=== PATIENT | female | born 1940 | race Caucasian/White ===

== ENCOUNTER 2017-02-19 10:51 | Emergency (ER) | payer MEDICARE, OTHER ==
[~2017-02-19] VITALS: Ht 167.6 cm; Wt 99.8 kg
[~2017-02-19 10:51] MED LIST: CIPR500T24 PO; COLC0.6T69 PO; LISI40TA4 PO; PANT40TA4 PO
[2017-02-19 11:05] VITALS: BP 141/97
[2017-02-19] MEDS ORDERED: TETRACAINE HCL/PF 0.5% UD 2 ML BOTTLE ONE ×2 (11:25)
[2017-02-19] MEDS ORDERED: FLUORESCEIN SODIUM OPHTH 1 EA STRIP ONE (11:25)
[2017-02-19] MEDS ORDERED: [UNRECOGNIZED DRUG - SUPPLY] MC ONE (11:30)
[2017-02-19] MEDS ORDERED: TETRACAINE HCL/PF 0.5% UD 2 ML BOTTLE EACHEYE ONE (11:30)
== END 2017-02-19 11:53 | disposition home or self-care (01) ==
LOC: ER 10:55
DX: H53.8 Other visual disturbances (principal); I10 Essential (primary) hypertension; I49.9 Cardiac arrhythmia, unspecified
CPT/HCPCS: 99283; A4606; Z7610

== ENCOUNTER 2022-03-09 14:59 | Emergency (ER) | payer MEDICARE ==
[~2022-03-09] VITALS: Ht 167.6 cm; Wt 113.4 kg
[~2022-03-09 14:59] MED LIST changes: +COLC0.6T67 PO; -COLC0.6T69 PO; +LISI40TA13 PO; -LISI40TA4 PO; -PANT40TA4 PO; +PANT40TA49 PO
--- NOTE | 2022-03-09 15:21 | NUR ---
BIBS C/O VAGINAL BLEEDING STARTED 6AM TODAY. AMBULATORY, [id number].
--- NOTE | 2022-03-09 15:30 | NUR ---
AT BED SIDE
--- NOTE | 2022-03-09 15:53 | NUR ---
URINE SAMPLE SENT TO LAB
[2022-03-09 16:36] LABS: BASOPHILS % (AUTO) 0.7 % (0.0-2.0); EOSINOPHILS % (AUTO) 3.2 % (0.0-6.0); HEMATOCRIT 42 % (33-45); HEMOGLOBIN 13.5 g/dL (11.5-14.8); LYMPHOCYTES # (AUTO) 1.5 K/uL (0.8-4.8); LYMPHOCYTES % (AUTO) 21.2 % (20.0-44.0); MEAN CORPUSCULAR HGB CONC 32 g/dl (31.0-36.0); MEAN CORPUSCULAR VOLUME 101 fL (82-100); MONOCYTES # (AUTO) 0.8 K/uL (0.1-1.30); MONOCYTES % (AUTO) 10.5 % (2.0-12.0); NEUTROPHILS # (AUTO) 4.6 K/uL (1.8-8.9); NEUTROPHILS % (AUTO) 64.4 % (43.0-81.0); PLATELET COUNT (AUTO) 164 K/uL (150-450); RED BLOOD CELL COUNT(AUTO) 4.13 MIL/uL (4.0-5.2); WHITE BLOOD COUNT (AUTO) 7.2 K/uL (4.3-11.0)
[2022-03-09 16:46] LABS: CALCIUM, SERUM 9.8 mg/dL (8.5-10.1); CREATININE 1.3 mg/dL (0.6-1.3); POTASSIUM 4.4 mmol/L (3.5-5.1)
[2022-03-09 16:52] LABS: ALBUMIN 3.4 g/dL (3.4-5.0); BILIRUBIN,DIRECT 0.2 mg/dL (0.0-0.2); BILIRUBIN,TOTAL 0.6 mg/dL (0.2-1.0); TOTAL PROTEIN, SERUM 7.2 g/dL (6.4-8.2)
[2022-03-09 16:55] LABS: BILIRUBIN,URINE SMALL (NEGATIVE); COLOR,URINE YELLOW (YELLOW); LEUKOCYTE ESTERASE ,URINE MODERATE (NEGATIVE); NITRITE, URINE NEGATIVE (NEGATIVE); PH,URINE 6.5 (5.0-8.0); PROTEIN,URINE NEGATIVE (NEGATIVE); UGLUCOSE NEGATIVE (NEGATIVE)
[2022-03-09 17:03] LABS: BACTERIA,URINE 2+ /HPF (None Seen); RBC,URINE 51-80 /HPF (0-2); WBC,URINE 21-50 /HPF (0-3)
[2022-03-09 18:38] VITALS: BP 122/62
--- NOTE | 2022-03-09 18:38 | NUR ---
Patient discharged to home in stable condition. Written and verbal after care instructions given. Patient verbalizes understanding of instruction.
== END 2022-03-09 18:20 | disposition home or self-care (01) ==
LOC: ER 15:02
DX: N93.9 Abnormal uterine and vaginal bleeding, unspecified (principal); I48.91 Unspecified atrial fibrillation; I10 Essential (primary) hypertension; E66.9 Obesity, unspecified; Z68.41 Body mass index [BMI] 40.0-44.9, adult
CPT/HCPCS: 36415; 80048-TC; 80076-TC; 81001; 85025-TC; 85730-TC; 87086-TC

== ENCOUNTER 2023-01-28 11:26 | Emergency (ER) | payer MEDICARE ==
[~2023-01-28] VITALS: Ht 167.6 cm; Wt 108.9 kg
--- NOTE | 2023-01-28 11:35 | NUR ---
PATIENT CAME WITH BOTH LOWER EXTRIMITIES SWELLING .ALERT AND ORIENTED.ON ROOM AIR.CONNECT TO MONITOR.
--- NOTE | 2023-01-28 11:39 | NUR ---
PA AT BED SIDE FOR EVAL
--- NOTE | 2023-01-28 11:44 | NUR ---
DR DARDEN AT BED SIDE
--- NOTE | 2023-01-28 11:45 | NUR ---
RT AC 20G IV INSERTED AND BLOOD COLLECTED AND SEND TO LAB.
--- NOTE | 2023-01-28 12:06 | NUR ---
SCANNING AT BED SIDE
[2023-01-28 12:24] LABS: BASOPHILS % (AUTO) 0.5 % (0.0-2.0); EOSINOPHILS % (AUTO) 3.3 % (0.0-6.0); HEMATOCRIT 38 % (33-45); HEMOGLOBIN 12.7 g/dL (11.5-14.8); LYMPHOCYTES # (AUTO) 1.1 K/uL (0.8-4.8); LYMPHOCYTES % (AUTO) 17.3 % (20.0-44.0); MEAN CORPUSCULAR HGB CONC 33 g/dl (31.0-36.0); MEAN CORPUSCULAR VOLUME 98 fL (82-100); MONOCYTES # (AUTO) 0.7 K/uL (0.1-1.30); MONOCYTES % (AUTO) 11.5 % (2.0-12.0); NEUTROPHILS # (AUTO) 4.2 K/uL (1.8-8.9); NEUTROPHILS % (AUTO) 67.4 % (43.0-81.0); PLATELET COUNT (AUTO) 135 K/uL (150-450); RED BLOOD CELL COUNT(AUTO) 3.87 MIL/uL (4.0-5.2); WHITE BLOOD COUNT (AUTO) 6.2 K/uL (4.3-11.0)
[2023-01-28 12:30] LABS: CALCIUM, SERUM 9.6 mg/dL (8.5-10.1); CARBON DIOXIDE 27 mmol/L (21-32); CHLORIDE 102 mmol/L (98-107); CREATININE 1.1 mg/dL (0.6-1.3); GLUCOSE 107 mg/dL (74-106); POTASSIUM 5.4 mmol/L (3.5-5.1); SODIUM SERUM 136 mmol/L (136-145); UREA NITROGEN, BLOOD 39 mg/dL (7-18)
[2023-01-28 12:40] LABS: ALANINE AMINOTRANSFERASE 22 U/L (12-78); ALBUMIN 3.4 g/dL (3.4-5.0); ALKALINE PHOSPHATASE 66 U/L (46-116); ASPARTATE AMINOTRANSFERASE 15 U/L (15-37); BILIRUBIN,DIRECT 0.2 mg/dL (0.0-0.2); BILIRUBIN,TOTAL 0.7 mg/dL (0.2-1.0); TOTAL PROTEIN, SERUM 7.2 g/dL (6.4-8.2)
[2023-01-28] MEDS ORDERED: FURO-145 PO (12:51)
--- NOTE | 2023-01-28 13:11 | NUR ---
IV removed. Catheter intact and site benign. Pressure and 4x4 applied to site. No bleeding noted.
--- NOTE | 2023-01-28 13:12 | NUR ---
Patient discharged to home in stable condition. Written and verbal after care instructions given. Patient verbalizes understanding of instruction.
[2023-01-28 13:13] VITALS: BP 138/68; TEMP 98.2; O2SAT 99
== END 2023-01-28 13:13 | disposition home or self-care (01) ==
LOC: ER 11:29
DX: R60.0 Localized edema (principal); I10 Essential (primary) hypertension
CPT/HCPCS: 36415; 71045-TC; 80048-TC; 80076-TC; 83880; 84484-TC; 85025-TC; 85730-TC; 93970-TC